=== PATIENT | male | born 1960 | race Caucasian/White ===

== ENCOUNTER 2018-11-07 01:30 | Inpatient (IN) | payer MEDICARE, MEDICAID ==
[2018-11-07] VITALS (22 sets, daily range): BP systolic 113–145; BP diastolic 65–86
[~2018-11-07] VITALS: Ht 172.7 cm; Wt 103.9 kg
--- NOTE | 2018-11-07 01:00 | NUR ---
Patient in room ICU 2045. I have received report from Michael MORTON and had the opportunity to ask questions and assume patient care.
[~2018-11-07 01:30] MED LIST: CHOLESTEROL MED; DOCU-28 PO; ESOM20CA PO; FENO145T38 PO; LANTUS SQ; LISI-644 PO; METF500T PO; METH5TAB PO
--- NOTE | 2018-11-07 01:30 | NUR ---
Received Pt into the room. Pt was brought in on a gurney and transferred to the bed via slide board. Pt was on a non-rebreather (8L) and had an O2 Sat of 97%. Pt's BP was WNL. HR was 101. Temp was 38.9 C. Pt was calm and following directions. Pt stated that he sleeps at home with Cpap. It was also passed in report that the patient was on Bipap before being transferred. Pt was placed on Bipap by RT. An ABG will be taken, per Kathleen [employer].
[2018-11-07] MEDS ORDERED: magnesium Cl slow-release 64mg tablet PO PRN (01:50)
[2018-11-07] MEDS ORDERED: potassium Cl 20 mEq SR tablet PO PRN (01:50)
[2018-11-07] MEDS ORDERED: dextrose 50%-water 50ml dispensing syringe IV PRN ×2 (01:50)
[2018-11-07] MEDS ORDERED: ondansetron/PF 4mg/2ml inj IV PRN (01:50)
[2018-11-07] MEDS ORDERED: dextrose ORAL solution 15 GM/59 ML bottle PO PRN ×2 (01:50)
[2018-11-07] MEDS ORDERED: magnesium hydroxide 30ml (MOM) UD suspension PO PRN (01:50)
[2018-11-07] MEDS ORDERED: MESSAGE TO PHARMACY PO ONE (01:50)
[2018-11-07] MEDS ORDERED: acetaminophen 650mg rectal suppository RC PRN (01:50)
[2018-11-07] MEDS ORDERED: glucagon, human recombinant 1mg kit SUBCUT PRN (01:50)
[2018-11-07 02:42] LABS: PARTIAL THROMBOPLASTIN TIME 34 SECONDS (22-32)
[2018-11-07 02:44] LABS: BASOPHILS % (AUTO) 0.2 % (0-1); EOSINOPHILS % (AUTO) 0 % (0-6); HEMATOCRIT 32.5 % (42.0-52.0); HEMOGLOBIN 11.3 g/dl (14.0-17.9); LYMPHOCYTES # (AUTO) 0.2 X10'3 (1.1-4.8); LYMPHOCYTES % (AUTO) 3.2 % (21-51); MEAN CORPUSCULAR HEMOGLOBIN 29.9 PG (27.0-31.0); MEAN CORPUSCULAR HGB CONC 34.7 g/dL (33.0-36.5); MEAN CORPUSCULAR VOLUME 86.3 FL (78-98); MEAN PLATELET VOLUME 7.5 FL (7.4-10.4); MONOCYTES # (AUTO) 0.5 X10'3 (0-0.9); NEUTROPHILS # (AUTO) 5.8 X10'3 (1.8-7.7); NEUTROPHILS % (AUTO) 89.6 % (42-75); PLATELET COUNT 104 X10'3 (140-440); RED BLOOD COUNT 3.77 X10'6 (4.70-6.10); RED CELL DISTRIBUTION WIDTH 14.5 % (11.5-14.5); WHITE BLOOD COUNT 6.5 X10'3 (4.5-11.0)
[2018-11-07 02:57] LABS: ALANINE AMINOTRANSFERASE 60 U/L (12-78); ALBUMIN 2.7 G/DL (3.4-5.0); ALBUMIN/GLOBULIN RATIO 0.7 (1.1-1.5); ALKALINE PHOSPHATASE 47 IU/L (46-116); ANION GAP 8 (8-16); ASPARTATE AMINO TRANSFERASE 52 U/L (10-37); BILIRUBIN,TOTAL 0.6 MG/DL (0.1-1.0); BLOOD UREA NITROGEN 20 MG/DL (7-18); BUN/CREATININE RATIO 16.5 (5.4-32.0); CALCIUM 7.5 MG/DL (8.5-10.1); CHLORIDE 103 MMOL/L (99-107); CREATININE 1.21 MG/DL (0.60-1.10); GLUCOSE 246 MG/DL (70-104); MAGNESIUM 1.4 MG/DL (1.5-2.4); PHOSPHORUS 1.5 MG/DL (2.3-4.5); POTASSIUM 3.7 MMOL/L (3.5-5.1); SODIUM 136 MMOL/L (135-145); TOTAL CARBON DIOXIDE 24.9 MMOL/L (24-32); TOTAL PROTEIN 6.7 G/DL (6.4-8.2); eGFR 61 ML/MIN
[2018-11-07] MEDS ORDERED: furosemide 40mg/4ml inj IV ONE (03:05)
[2018-11-07 03:07] LABS: HEMOGLOBIN A1C 7.4 % (4.5-6.2)
[2018-11-07 03:23] LABS: TROPONIN I 0.39 NG/ML (0.0-0.05)
[2018-11-07 03:35] LABS: ABG HCO3 22.6 mmol/L (22.0-26.0); ABG OXYGEN SATURATION 96.8 % (95-98); ABG PCO2 (T) 34.6 mmHg (35.0-45.0); ABG PH (T) 7.435 (7.350-7.450); ABG PO2 (T) 93.3 mmHg (83-108); ALLEN'S TEST Positive; FCOHb 0.3 % (0.5-1.5); FO2Hb 96.5 % (94-100); PATIENT TEMPERATURE 37.6; RESPIRATORY RATE 20 b/min; RESPIRATORY RATE (OBSERVED) 21 b/min; TOTAL HEMOGLOBIN 11.7 G/dl (14.0-17.9)
[2018-11-07] MEDS: acetaminophen 325mg tablet PO PRN ×3 (04:16→22:14)
[2018-11-07 04:19] LABS: CLARITY,URINE SLIGHTLY CLOUDY (Clear); COLOR,URINE YELLOW (Yellow); GLUCOSE, URINE 500 mg/dl (Neg); KETONES,URINE NEGATIVE (Neg); LEUKOCYTE ESTERASE ,URINE NEGATIVE (Neg); NITRITES, URINE NEGATIVE (Neg); OCCULT BLOOD,URINE LARGE (Neg); PROTEIN,URINE 100 mg/dl (Neg); UROBILINOGEN,URINE 0.2 E.U/dL (0.2-1.0)
[2018-11-07 04:22] LABS: UA COLLECTION TYPE FOLEY CATH
[2018-11-07 04:36] LABS: AMORPHOUS URATES 2+; BACTERIA,URINE NONE SEEN /HPF (Neg); MUCUS STRANDS FEW /LPF (Neg); RBC,URINE 50-100 /HPF (0-2); SQUAMOUS EPITHELIAL CELL,UR NONE SEEN /LPF (FEW); TRANSITIONAL EPI CELLS,URINE FEW /HPF; WBC,URINE 0-4 /HPF (0-4)
[2018-11-07] MEDS: piperacillin/tazo 3.375gm/50ml 50 ML IV SCH ×3 (04:48→20:48)
[2018-11-07] MEDS ORDERED: FURO40TA4 PO (06:10)
--- NOTE | 2018-11-07 06:35 | NUR ---
Problems reprioritized. Patient report given, questions answered & plan of care reviewed with Remedios MORTON.
[2018-11-07] MEDS: nitroGLYCERIN 0.4mg/hour patch TD SCH (08:04)
[2018-11-07] MEDS: pantoprazole 40 MG vial IV SCH (08:04)
[2018-11-07] MEDS: docusate sod 100mg capsule PO SCH ×2 (08:04→20:48)
[2018-11-07] MEDS: lisinopril 20mg tablet PO SCH ×2 (08:05→20:48)
[2018-11-07] MEDS: methadone 5mg tablet PO SCH ×2 (08:05→20:52)
[2018-11-07] MEDS: insulin Lispro (HumaLOG) vial - multi-dose SQ SCH ×3 (09:28→21:01)
[2018-11-07] MEDS: enoxaparin 100mg/ml syringe SUBCUT SCH ×2 (10:44→20:49)
[2018-11-07] MEDS: furosemide 40mg/4ml inj IV SCH (15:09)
[2018-11-07] MEDS ORDERED: LORazepam 2 mg/ml vial IM ONE (16:20)
[2018-11-07] MEDS ORDERED: LORazepam 2 mg/ml vial ONE (16:22)
--- NOTE | 2018-11-07 18:30 | NUR ---
Patient in room ICU 2045. I have received report from Remedios MORTON and had the opportunity to ask questions and assume patient care.
[2018-11-07] MEDS ORDERED: gadopentetate dimeglumine 5 mmol/10ml vial IV ONE (19:11)
[2018-11-07] MEDS ORDERED: gadopentetate dimeglumine 7.5 MMOL/15 ML syringe ONE (19:11)
[2018-11-07] MEDS: lactobacillus rhamnosus 10,000 MMU CELLS/CAPSULE PO SCH (20:48)
[2018-11-07] MEDS ORDERED: insulin glargine (Lantus) pen - multi-dose SQ SCH (21:00)
[2018-11-08] VITALS (17 sets, daily range): BP systolic 115–167; BP diastolic 67–105
[2018-11-08] MEDS: furosemide 40mg/4ml inj IV SCH ×2 (00:14→08:00)
[2018-11-08] MEDS: acetaminophen 325mg tablet PO PRN ×3 (04:26→22:49)
[2018-11-08] MEDS: piperacillin/tazo 3.375gm/50ml 50 ML IV SCH (04:26)
[2018-11-08 04:49] LABS: EOSINOPHILS # (AUTO) 0.1 X10'3 (0-0.9); EOSINOPHILS % (AUTO) 0.8 % (0-6); HEMOGLOBIN 11.7 g/dl (14.0-17.9); MEAN CORPUSCULAR VOLUME 85.1 FL (78-98); MONOCYTES # (AUTO) 0.9 X10'3 (0-0.9)
[2018-11-08 04:52] LABS: BASOPHILS % (AUTO) 0.1 % (0-1); HEMATOCRIT 33.6 % (42.0-52.0); LYMPHOCYTES # (AUTO) 0.5 X10'3 (1.1-4.8); LYMPHOCYTES % (AUTO) 7.3 % (21-51); MEAN CORPUSCULAR HEMOGLOBIN 29.7 PG (27.0-31.0); MEAN CORPUSCULAR HGB CONC 34.9 g/dL (33.0-36.5); MEAN PLATELET VOLUME 7.4 FL (7.4-10.4); MONOCYTES % (AUTO) 12.8 % (2-12); NEUTROPHILS # (AUTO) 5.4 X10'3 (1.8-7.7); PLATELET COUNT 110 X10'3 (140-440); RED BLOOD COUNT 3.96 X10'6 (4.70-6.10); RED CELL DISTRIBUTION WIDTH 14.5 % (11.5-14.5); WHITE BLOOD COUNT 6.9 X10'3 (4.5-11.0)
[2018-11-08 04:53] LABS: PARTIAL THROMBOPLASTIN TIME 35 SECONDS (22-32)
[2018-11-08 05:07] LABS: ALANINE AMINOTRANSFERASE 49 U/L (12-78); ALBUMIN 2.7 G/DL (3.4-5.0); ALBUMIN/GLOBULIN RATIO 0.6 (1.1-1.5); ALKALINE PHOSPHATASE 47 IU/L (46-116); ANION GAP 8 (8-16); ASPARTATE AMINO TRANSFERASE 28 U/L (10-37); BILIRUBIN,TOTAL 0.7 MG/DL (0.1-1.0); BLOOD UREA NITROGEN 16 MG/DL (7-18); BUN/CREATININE RATIO 15.1 (5.4-32.0); CALCIUM 7.9 MG/DL (8.5-10.1); CHLORIDE 101 MMOL/L (99-107); CREATININE 1.06 MG/DL (0.60-1.10); GLUCOSE 152 MG/DL (70-104); MAGNESIUM 1.5 MG/DL (1.5-2.4); PHOSPHORUS 2.2 MG/DL (2.3-4.5); POTASSIUM 3.3 MMOL/L (3.5-5.1); SODIUM 136 MMOL/L (135-145); TOTAL CARBON DIOXIDE 26.6 MMOL/L (24-32); TOTAL PROTEIN 7.1 G/DL (6.4-8.2); eGFR 72 ML/MIN
[2018-11-08] MEDS: potassium Cl 20 mEq SR tablet PO PRN ×3 (05:25→13:38)
--- NOTE | 2018-11-08 07:49 | NUR ---
Patient in SVT for the third time since shift change. Patient asymptomatic and able to valsalva back into NSR. Will notify Addendum: 11/08/18 at 0808 by Martell Amezcua RN Dr Perales notified of SVT episodes. Also clarified Nitro patch order. No need for nitro patch unless patient uses it at home or has chest pain. Patient has no chest pain and does not use a patch at home. Addendum: 11/08/18 at 0809 by Martell Amezcua RN Holding zestril for now to asses if BP tolerates lasix
[2018-11-08] MEDS: methadone 5mg tablet PO SCH ×2 (08:00→20:36)
[2018-11-08] MEDS: lactobacillus rhamnosus 10,000 MMU CELLS/CAPSULE PO SCH ×2 (08:00→20:40)
[2018-11-08] MEDS: nitroGLYCERIN 0.4mg/hour patch TD SCH (08:00)
[2018-11-08] MEDS ORDERED: furosemide 40mg/4ml inj IV SCH (08:00)
[2018-11-08] MEDS: docusate sod 100mg capsule PO SCH ×2 (08:01→20:36)
[2018-11-08] MEDS: pantoprazole 40 MG vial IV SCH (08:01)
[2018-11-08] MEDS: enoxaparin 100mg/ml syringe SUBCUT SCH (08:02)
[2018-11-08] MEDS: insulin Lispro (HumaLOG) vial - multi-dose SQ SCH ×3 (08:44→19:10)
[2018-11-08] MEDS ORDERED: levoFLOXACIN 500mg tablet PO ONE (09:30)
--- NOTE | 2018-11-08 09:30 | NUR ---
vascular studies done of lower ext. c/o pain rt leg and hip and lower back r/t movement with study. tylenol given with slight relief. dozing inbetween care.
[2018-11-08] MEDS: lisinopril 20mg tablet PO SCH ×2 (09:46→20:39)
[2018-11-08] MEDS: apixaban 5mg tablet PO SCH ×2 (11:31→20:36)
[2018-11-08] MEDS: levoFLOXACIN 500mg tablet PO SCH ×2 (11:31→20:39)
[2018-11-08] MEDS ORDERED: AMLO10TA13 PO (11:36)
--- NOTE | 2018-11-08 12:53 | NUR ---
received pt report from Martell MORTON in the ICU, had the opportunity to ask questions, awaiting pt arrival to the unit.
--- NOTE | 2018-11-08 13:10 | NUR ---
pt arrived on unit with all belongings, via wheelchair, tele on pt, oriented to room, VS stable, will continue to monitor.
--- NOTE | 2018-11-08 16:23 | NUR ---
Patient admitted with pulmonary emboli, acute respiratory distress (resolved per MD note), and sepsis- per MD note no abscess or septic arthritis. A1c is 7.4, patient seen at bedside and given written DM education handout with verbal review and referral to outpatient DM education class on tuesday. Patient has no teeth, receiving mechanical soft diet, requesting all foods to be chopped. Encouraged PO, patient endorses improving appetite. Recommend: 1. continue carb controlled, mechanical soft diet 2. chop all foods, d/w dietary 3. Weight per rx Addendum: 11/08/18 at [address] Amended: Links added. Addendum: 11/08/18 at [address] Patient admitted with pulmonary emboli, acute respiratory distress (resolved per MD note), and sepsis- per MD note no abscess or septic arthritis. A1c is 7.4, patient seen at bedside and given written DM education handout with verbal review and referral to outpatient DM education class on tuesday. Patient has no teeth, receiving mechanical soft diet, requesting all foods to be chopped, he is already receiving grind all. Encouraged PO, patient endorses improving appetite. Recommend: 1. continue carb controlled, mechanical soft diet 2. grind all 3. Weight per rx
[2018-11-08] MEDS ORDERED: VANCOMYCIN LEVEL IV ONE (17:30)
[2018-11-08] MEDS: ipratropium/albuterol 3ml nebule NEB PRN ×2 (19:14→19:21)
[2018-11-08] MEDS: furosemide 40mg tablet PO SCH (20:40)
[2018-11-08] MEDS ORDERED: pantoprazole 40mg Tablet.DR PO ONE (21:50)
[2018-11-08] MEDS: insulin glargine (Lantus) pen - multi-dose SQ SCH (22:12)
[2018-11-09 02:00] VITALS: BP 146/85
[2018-11-09 04:52] LABS: BASOPHILS % (AUTO) 0.3 % (0-1); EOSINOPHILS % (AUTO) 0.2 % (0-6); HEMOGLOBIN 11.4 g/dl (14.0-17.9); LYMPHOCYTES # (AUTO) 0.6 X10'3 (1.1-4.8); MEAN CORPUSCULAR HEMOGLOBIN 29.2 PG (27.0-31.0); MEAN CORPUSCULAR HGB CONC 34.5 g/dL (33.0-36.5); MEAN CORPUSCULAR VOLUME 84.8 FL (78-98); MEAN PLATELET VOLUME 7.6 FL (7.4-10.4); MONOCYTES # (AUTO) 0.7 X10'3 (0-0.9); MONOCYTES % (AUTO) 13.4 % (2-12); NEUTROPHILS % (AUTO) 74.1 % (42-75); PLATELET COUNT 124 X10'3 (140-440); RED BLOOD COUNT 3.89 X10'6 (4.70-6.10); RED CELL DISTRIBUTION WIDTH 14.2 % (11.5-14.5); WHITE BLOOD COUNT 5.3 X10'3 (4.5-11.0)
[2018-11-09 04:58] LABS: PARTIAL THROMBOPLASTIN TIME 36 SECONDS (22-32)
[2018-11-09 05:16] LABS: ALANINE AMINOTRANSFERASE 40 U/L (12-78); ALBUMIN 2.4 G/DL (3.4-5.0); ALBUMIN/GLOBULIN RATIO 0.5 (1.1-1.5); ALKALINE PHOSPHATASE 48 IU/L (46-116); ANION GAP 7 (8-16); ASPARTATE AMINO TRANSFERASE 21 U/L (10-37); BILIRUBIN,TOTAL 0.9 MG/DL (0.1-1.0); BLOOD UREA NITROGEN 15 MG/DL (7-18); BUN/CREATININE RATIO 17.4 (5.4-32.0); CALCIUM 7.7 MG/DL (8.5-10.1); CHLORIDE 99 MMOL/L (99-107); CREATININE 0.86 MG/DL (0.60-1.10); GLUCOSE 120 MG/DL (70-104); MAGNESIUM 1.6 MG/DL (1.5-2.4); PHOSPHORUS 2.6 MG/DL (2.3-4.5); POTASSIUM 3.4 MMOL/L (3.5-5.1); SODIUM 134 MMOL/L (135-145); TOTAL CARBON DIOXIDE 27.8 MMOL/L (24-32); TOTAL PROTEIN 6.8 G/DL (6.4-8.2); eGFR > 90 ML/MIN
[2018-11-09 06:00] VITALS: BP 143/78
--- NOTE | 2018-11-09 06:15 | NUR ---
Patient in room PCU 3015. I have received report from PRAVEEN Phillips and had the opportunity to ask questions and assume patient care.
--- NOTE | 2018-11-09 06:40 | NUR ---
Problems reprioritized. Patient report given, questions answered & plan of care reviewed with Marko dejesus.
[2018-11-09] MEDS: potassium Cl 20 mEq SR tablet PO PRN ×3 (08:11→22:42)
[2018-11-09] MEDS: methadone 5mg tablet PO SCH ×2 (08:11→19:52)
[2018-11-09] MEDS: furosemide 40mg tablet PO SCH (08:11)
[2018-11-09] MEDS: docusate sod 100mg capsule PO SCH ×2 (08:11→19:46)
[2018-11-09] MEDS: lactobacillus rhamnosus 10,000 MMU CELLS/CAPSULE PO SCH ×2 (08:11→19:46)
[2018-11-09] MEDS: lisinopril 20mg tablet PO SCH ×2 (08:12→19:50)
[2018-11-09] MEDS: apixaban 5mg tablet PO SCH ×2 (08:12→19:52)
[2018-11-09] MEDS: pantoprazole 40mg Tablet.DR PO SCH (08:12)
[2018-11-09] MEDS: nitroGLYCERIN 0.4mg/hour patch TD SCH (08:12)
[2018-11-09] MEDS: insulin Lispro (HumaLOG) vial - multi-dose SQ SCH ×2 (09:19→19:21)
[2018-11-09 11:00] VITALS: BP 146/68
[2018-11-09] MEDS: furosemide 40mg/4ml inj IV SCH ×2 (11:54→19:46)
--- NOTE | 2018-11-09 14:46 | NUR ---
PT working with pt
[2018-11-09 15:00] VITALS: BP 112/76
[2018-11-09] MEDS: acetaminophen 325mg tablet PO PRN (15:54)
[2018-11-09 18:00] VITALS: BP 123/70
--- NOTE | 2018-11-09 18:20 | NUR ---
Patient in room PCU 3015. I have received report from PRAVEEN Zhu and had the opportunity to ask questions and assume patient care.
--- NOTE | 2018-11-09 18:30 | NUR ---
Patient in room PCU 3015. I have received report from Marko Otoole RN and had the opportunity to ask questions and assume patient care.
[2018-11-09] MEDS: insulin glargine (Lantus) pen - multi-dose SQ SCH (21:56)
[2018-11-09 22:00] VITALS: BP 148/72
--- NOTE | 2018-11-09 23:17 | NUR ---
pt does not ewant heater on with Bipap. Addendum: 11/09/18 at 2729 by Kathleen Kaplan RT Amended: Links added.
[2018-11-10 02:00] VITALS: BP 154/81
[2018-11-10 05:59] LABS: BASOPHILS % (AUTO) 0.1 % (0-1); EOSINOPHILS % (AUTO) 0.7 % (0-6); HEMATOCRIT 35.5 % (42.0-52.0); LYMPHOCYTES # (AUTO) 0.5 X10'3 (1.1-4.8); LYMPHOCYTES % (AUTO) 8.4 % (21-51); MEAN CORPUSCULAR HEMOGLOBIN 29.1 PG (27.0-31.0); MEAN CORPUSCULAR HGB CONC 33.7 g/dL (33.0-36.5); MEAN CORPUSCULAR VOLUME 86.1 FL (78-98); MONOCYTES # (AUTO) 0.7 X10'3 (0-0.9); MONOCYTES % (AUTO) 12.5 % (2-12); NEUTROPHILS # (AUTO) 4.3 X10'3 (1.8-7.7); NEUTROPHILS % (AUTO) 78.3 % (42-75); PLATELET COUNT 127 X10'3 (140-440); RED BLOOD COUNT 4.12 X10'6 (4.70-6.10); RED CELL DISTRIBUTION WIDTH 14.1 % (11.5-14.5); WHITE BLOOD COUNT 5.5 X10'3 (4.5-11.0)
[2018-11-10 06:00] VITALS: BP 162/88
--- NOTE | 2018-11-10 06:00 | NUR ---
I have reviewed and agree with all of Evelyn Woodward's charting.
--- NOTE | 2018-11-10 06:00 | NUR ---
Patient in room PCU 3015. I have received report from PRAVEEN Phillips and had the opportunity to ask questions and assume patient care.
[2018-11-10 06:21] LABS: ALANINE AMINOTRANSFERASE 39 U/L (12-78); ALBUMIN 2.4 G/DL (3.4-5.0); ALBUMIN/GLOBULIN RATIO 0.5 (1.1-1.5); ALKALINE PHOSPHATASE 53 IU/L (46-116); ANION GAP 8 (8-16); ASPARTATE AMINO TRANSFERASE 23 U/L (10-37); BILIRUBIN,TOTAL 0.7 MG/DL (0.1-1.0); BLOOD UREA NITROGEN 18 MG/DL (7-18); BUN/CREATININE RATIO 19.6 (5.4-32.0); CHLORIDE 99 MMOL/L (99-107); CREATININE 0.92 MG/DL (0.60-1.10); GLUCOSE 162 MG/DL (70-104); MAGNESIUM 1.8 MG/DL (1.5-2.4); PHOSPHORUS 3.1 MG/DL (2.3-4.5); POTASSIUM 3.5 MMOL/L (3.5-5.1); SODIUM 135 MMOL/L (135-145); TOTAL CARBON DIOXIDE 28.3 MMOL/L (24-32); TOTAL PROTEIN 6.9 G/DL (6.4-8.2); eGFR 84 ML/MIN
--- NOTE | 2018-11-10 06:37 | NUR ---
Problems reprioritized. Patient report given, questions answered & plan of care reviewed with Marley Blanchard RN.
[2018-11-10 06:45] LABS: PARTIAL THROMBOPLASTIN TIME 25 SECONDS (22-32)
[2018-11-10] MEDS: lisinopril 20mg tablet PO SCH (08:07)
[2018-11-10] MEDS: pantoprazole 40mg Tablet.DR PO SCH (08:08)
[2018-11-10] MEDS: lactobacillus rhamnosus 10,000 MMU CELLS/CAPSULE PO SCH (08:08)
[2018-11-10] MEDS: nitroGLYCERIN 0.4mg/hour patch TD SCH (08:08)
[2018-11-10] MEDS: furosemide 40mg/4ml inj IV SCH (08:08)
[2018-11-10] MEDS: apixaban 5mg tablet PO SCH (08:09)
[2018-11-10] MEDS: methadone 5mg tablet PO SCH (08:09)
[2018-11-10] MEDS: docusate sod 100mg capsule PO SCH (08:10)
[2018-11-10 11:00] VITALS: BP 137/79
[2018-11-10] MEDS: acetaminophen 325mg tablet PO PRN (11:01)
[2018-11-10] MEDS: levoFLOXACIN 500mg tablet PO SCH (11:02)
[2018-11-10] MEDS: insulin Lispro (HumaLOG) vial - multi-dose SQ SCH (12:38)
--- NOTE | 2018-11-10 13:20 | NUR ---
Reassessment: Acute respiratory failure likely r/t pulmonary embolus resolving however pt still requiring nasal cannula and with SOB with minimal exertion per MD notes. Sepsis score 0 per physical assessment. Pt with fluctuating PO intake with 0% at lunch yesterday however with 100% PO intake for breakfast and dinner yesterday and again at breakfast today. LBM 11/07 receiving routine Colace with MoM PRN not yet given. Pt with active discharge orders. Will continue to follow. Recommend: 1. continue carb controlled, mechanical soft diet 2. grind all 3. routine bowel care 4. Weight per rx Addendum: 11/10/18 at [address] Amended: Links added.
--- NOTE | 2018-11-10 14:05 | NUR ---
REPORT CALLED TO [facility] BY ROSA GREWAL RN. REPORT GIVEN TO KEVYN MORTON. ALL QUESTIONS ANSWERED. PT STATED HE HAD ALL BELONGINGS INCLUDING CELL PHONE. PT LEFT HOSPITAL VIA W/C WITH ANGIE CARGO. 3L NC O2 PROVIDED. Addendum: 11/10/18 at 1407 by Rosa Grewal RN Amended: Links added.
== END 2018-11-10 14:43 | DRG 871 ==
LOC: ICU 2S 01:30 → PCU 3S 11-08 13:29
PROVIDERS: ADMIT Internal Medicine Critical Care Medicine; ATTEND Internal Medicine
PROC: 5A09357 Assistance with Respiratory Ventilation, Less than 24 Consecutive Hours, Continuous Positive Airway Pressure (ICD-10-PCS; principal; 2018-11-07)
PROC: 5A09357 Assistance with Respiratory Ventilation, Less than 24 Consecutive Hours, Continuous Positive Airway Pressure (ICD-10-PCS; 2018-11-08)
PROC: 5A09357 Assistance with Respiratory Ventilation, Less than 24 Consecutive Hours, Continuous Positive Airway Pressure (ICD-10-PCS; 2018-11-09)
DX: A41.9 Sepsis, unspecified organism (principal); J96.00 Acute respiratory failure, unspecified whether with hypoxia or hypercapnia; I26.09 Other pulmonary embolism with acute cor pulmonale; F11.20 Opioid dependence, uncomplicated; L03.115 Cellulitis of right lower limb; E11.9 Type 2 diabetes mellitus without complications; E78.5 Hyperlipidemia, unspecified; G47.30 Sleep apnea, unspecified; I11.0 Hypertensive heart disease with heart failure; I48.0 Paroxysmal atrial fibrillation; I50.813 Acute on chronic right heart failure; K21.9 Gastro-esophageal reflux disease without esophagitis; Z60.2 Problems related to living alone; L40.50 Arthropathic psoriasis, unspecified; G89.29 Other chronic pain; K57.90 Diverticulosis of intestine, part unspecified, without perforation or abscess without bleeding; M25.551 Pain in right hip; M54.2 Cervicalgia; M54.9 Dorsalgia, unspecified; Z87.442 Personal history of urinary calculi; Z88.1 Allergy status to other antibiotic agents; Z91.030 Bee allergy status; Z88.5 Allergy status to narcotic agent; Z91.018 Allergy to other foods; Z79.899 Other long term (current) drug therapy; Z79.4 Long term (current) use of insulin; Z90.49 Acquired absence of other specified parts of digestive tract
CPT/HCPCS: 36415; 36600; 71045; 73723; 80053; 81001; 82803; 82948; 83036; 83605; 83735; 83880; 84100; 84145; 84443; 84484; 85018; 85025; 85610; 85730; 87040; 87070; 87081; 93005; 93306; 93970; 94640; 94660; 94760; 97110; 97112; 97116; 97161; 97530; A9579; C9113; G0378; J1650; J1815; J1940; J2060; J2405; J2543; J3370

== ENCOUNTER 2020-10-03 00:26 | Emergency (ER) | payer MEDICARE, MEDICAID ==
[~2020-10-03] VITALS: Ht 172.7 cm; Wt 88.6 kg
[~2020-10-03 00:26] MED LIST changes: +AMLO10TA13 PO; -CHOLESTEROL MED; -DOCU-28 PO; -ESOM20CA PO; -FENO145T38 PO; +FURO40TA4 PO
[2020-10-03] MEDS ORDERED: ketorolac trometh. 30mg/ml inj. IV ONE (01:00)
[2020-10-03] MEDS ORDERED: ondansetron/PF 4mg/2ml inj IV ONE (01:00)
[2020-10-03] MEDS ORDERED: iohexol 350MG/ML 100ml bottle IV ONE (01:12)
[2020-10-03 01:50] LABS: ALANINE AMINOTRANSFERASE 20 U/L (12-78); ALBUMIN 3.5 G/DL (3.4-5.0); ALKALINE PHOSPHATASE 93 IU/L (46-116); ANION GAP 8 (8-16); ASPARTATE AMINO TRANSFERASE 9 U/L (10-37); BILIRUBIN,TOTAL 0.7 MG/DL (0.1-1.0); BLOOD UREA NITROGEN 18 MG/DL (7-18); BUN/CREATININE RATIO 19.1 (5.4-32.0); CALCIUM 7.8 MG/DL (8.5-10.1); CHLORIDE 104 MMOL/L (99-107); CREATININE 0.94 MG/DL (0.60-1.10); GLUCOSE 297 MG/DL (70-104); SODIUM 139 MMOL/L (135-145); TOTAL CARBON DIOXIDE 26.8 MMOL/L (24-32); TOTAL PROTEIN 6.9 G/DL (6.4-8.2); eGFR 82 ML/MIN
[2020-10-03 02:01] LABS: BASOPHILS % (AUTO) 0.3 % (0-1); EOSINOPHILS # (AUTO) 0.1 X10'3 (0-0.9); EOSINOPHILS % (AUTO) 2.2 % (0-6); LYMPHOCYTES # (AUTO) 0.9 X10'3 (1.1-4.8); MEAN CORPUSCULAR HGB CONC 35.9 g/dL (33.0-36.5); MEAN CORPUSCULAR VOLUME 91.9 FL (78-98); MEAN PLATELET VOLUME 7.6 FL (7.4-10.4); MONOCYTES # (AUTO) 0.6 X10'3 (0-0.9); MONOCYTES % (AUTO) 10.5 % (2-12); NEUTROPHILS # (AUTO) 3.7 X10'3 (1.8-7.7); PLATELET COUNT 204 X10'3 (140-440); RED BLOOD COUNT 4.25 X10'6 (4.70-6.10); RED CELL DISTRIBUTION WIDTH 14.8 % (11.5-14.5); WHITE BLOOD COUNT 5.2 X10'3 (4.5-11.0)
[2020-10-03] MEDS ORDERED: APIX5TAB3 PO (02:49)
[2020-10-03] MEDS ORDERED: apixaban 5mg tablet PO ONE (02:50)
[2020-10-03 03:06] VITALS: BP 127/71
== END 2020-10-03 03:08 | disposition home or self-care (01) ==
LOC: ER 00:27
DX: R07.89 Other chest pain (principal); R06.02 Shortness of breath; R11.0 Nausea; Z91.030 Bee allergy status; Z88.1 Allergy status to other antibiotic agents; Z88.5 Allergy status to narcotic agent; Z79.4 Long term (current) use of insulin; Z79.899 Other long term (current) drug therapy
CPT/HCPCS: 36415; 71045; 71275; 80053; 83880; 84484; 85025; 93005; 96374; 96375; 99285; J1885; J2405; Q9967